=== PATIENT | female | born 1990 | race Caucasian/White ===

== ENCOUNTER 2017-02-20 14:51 | Emergency (ER) | payer OTHER ==
[2017-02-20 14:58] VITALS: BP 132/68; PULSE 78; TEMP 98; BMI 31.7
--- NOTE | 2017-02-20 15:20 | PDOC ---
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 The source states she had hepatitis in the past unknown HIV status. the source has not been tested. Pt here today for post exposure. Timing: this afternoon Severity: mild Exposed Location: Right: Finger(s) (thumb) Assessing Significant Risk PEP: Yes Percutaneous Past History - Past Medical History Allergies/Adverse Reactions: Allergies No Known Allergies Allergy (Verified 02/20/17 14:56) Home Medications: Ambulatory Orders Raltegravir [Isentress] 400 mg PO BID #46 tab 02/20/17 General: Yes: no pertinent history - Immunization History Immunizations Up to Date: Yes Tetanus Status: Less than 5 years - Social History Smoking Status: Never smoked Review of Systems - Review of Systems Able to Perform ROS?: Yes Is the patient limited Omani proficient: No Constitutional: No: Symptoms Reported HEENTM: No: Symptoms Reported Respiratory: No: Symptoms reported Cardiac (ROS): No: Symptoms Reported ABD/GI: No: Symptoms Reported : No: Symptoms Reported Musculoskeletal: No: Symptoms Reported Integumentary: Yes: Symptoms Reported *Physical Exam - Vital Signs Last Vital Signs Temp Pulse Resp BP Pulse Ox 98 F 78 18 132/68 98 02/20/17 14:55 02/20/17 14:55 02/20/17 14:55 02/20/17 14:55 02/20/17 14:55 - Physical Exam General Appearance: Yes: Nourished, Appropriately Dressed HEENT: positive: EOMI, CINDY Gastrointestinal/Abdominal: positive: Normal Bowel Sounds, Soft Musculoskeletal: positive: Normal Inspection Extremity: positive: Normal Capillary Refill, Normal Inspection, Normal Range of Motion Integumentary: positive: Normal Color, Dry, Warm, Other (right thumb lateral surface ) Neurologic: positive: Fully Oriented, Alert, Normal Mood/Affect, Normal Response , Motor Strength 5/5 Post Exposure - ED Protocol - Exposure Treatment Washing/Decontamination: Soap/Water Source Patient HIV Status:: Unknown Is PEP indicated?: Yes Prophylaxis for HIV discussed?: Yes Prophylaxis given?: Yes Prophylaxis refused?: No Treatment Given:: Truvada (Tenof+Emtricita), Isentress (Raltegravir) Drug(s) Information Sheets given:: Yes Baseline bloods drawn prophylaxis:(use *Exposure-Hosp Emp): Yes Additional Treatment:: DT - Referrals Employee Referred to Infectious Disease Specialist:: Denise Meyers *DC/Admit/Observation/Transfer Diagnosis at time of Disposition: Needlestick injury with contaminated needle Qualifiers: Encounter type: initial encounter Qualified Code(s): W46.1XXA - Contact with contaminated hypodermic needle, initial encounter - Discharge Dispostion Disposition: HOME Condition at time of disposition: Good - Prescriptions Prescriptions: Raltegravir [Isentress] 400 mg PO BID #46 tab - Referrals Referrals: Aaron Lundberg MD [Primary Care Provider] - Denise Meyers MD [Staff Physician] - - Patient Instructions Printed Discharge Instructions: How to Handle Body Fluid Exposure -- Non- Healthcare Worker (At Home, Caregi Additional Instructions: take the medication as prescribed keep finger clean and dry antibacterial soap and water and apply bacitracin and bandaid follow with your primary care or with the infectious disease doctor Dr. Meyers next week calll Wednesday to make appointment return to ER for any worsening symptoms - Post Discharge Activity Work/School Note: Back to Work
[2017-02-20] MEDS ORDERED: DIPHTH,PERTUSS(ACELL),TET 0.5 ML DISP.SYRIN IM ONE (15:44)
[2017-02-20 15:59] LABS: HIV 1 & 2 AB NEGATIVE; HIV 1 AGp24 NEGATIVE
[2017-02-20] MEDS ORDERED: HIV POST EXPOSURE PROPHYLAXIS KIT NR ONE (16:06)
[2017-02-20] MEDS ORDERED: HIV POST EXPOSURE PROPHYLAXIS KIT PO ONE (16:13)
[2017-02-23 10:13] LABS: HEP B SURFACE AB Reactive (.)
== END 2017-02-20 16:40 | disposition home or self-care (01) ==
LOC: JERFT 14:51
PROC: 3E0234Z Introduction of Serum, Toxoid and Vaccine into Muscle, Percutaneous Approach (ICD-10-PCS; principal; 2017-02-20)
DX: S61.031A Puncture wound without foreign body of right thumb without damage to nail, initial encounter (principal); W46.1XXA Contact with contaminated hypodermic needle, initial encounter; Y93.F9 Activity, other caregiving; Y92.531 Health care provider office as the place of occurrence of the external cause; Y99.0 Civilian activity done for income or pay
CPT/HCPCS: 36415; 84460; 84703; 86704; 86706; 86708; 87340; 87389; 90715; 99281-25

== ENCOUNTER 2017-05-15 09:34 | Emergency (ER) | payer SELFPAY ==
[2017-05-15 09:43] VITALS: BP 118/79; PULSE 68; TEMP 99; BMI 31.3
--- NOTE | 2017-05-15 10:08 | PDOC ---
History of Present Illness - General Chief Complaint: Sore Throat Stated Complaint: SORE THROAT Time Seen by Provider: 05/15/17 09:45 History Source: Patient Exam Limitations: No Limitations - History of Present Illness Initial Comments: 05/15/17 10:04 Patient is a 27-year-old female, history of migraines presents emergency department for sore throat, dysphasia, fever last night, no cough. Allergies: No known allergies Medications: None Family History: Non-contributory Social History: Denies smoking, alcohol use, or IVDU Review of Systems GENERAL/CONSTITUTIONAL: Fever. No weakness. No weight change. HEAD, EYES, EARS, NOSE AND THROAT: No change in vision. No ear pain or discharge. Sore throat and dysphagia CARDIOVASCULAR: No chest pain or shortness of breath. RESPIRATORY: No cough, wheezing, or hemoptysis. GASTROINTESTINAL: No nausea, vomiting, diarrhea or constipation. No rectal bleeding. GENITOURINARY: No dysuria, frequency, or change in urination. MUSCULOSKELETAL: No joint or muscle swelling or pain. No neck or back pain. SKIN AND BREASTS: No rash or easy bruising. NEUROLOGIC: No headache, vertigo, loss of consciousness, or loss of sensation. PSYCHIATRIC: No depression or anxiety. ENDOCRINE: No increased thirst. No abnormal weight change. HEMATOLOGIC/LYMPHATIC: No anemia, easy bleeding, or history of blood clots. ALLERGIC/IMMUNOLOGIC: No hives or skin allergy. No latex allergy. Physical Exam: GENERAL: The patient is awake, alert, and fully oriented, in no acute distress. HEAD: Normal with no signs of trauma. EYES: Pupils equal, round and reactive to light, extraocular movements intact, sclera anicteric, conjunctiva clear. ENT: Ears normal, nares patent, oral pharynx is erythematous with exudates bilateral tonsils . Moist mucous membranes. No uvula deviation NECK: Normal range of motion, left anterior cervical lymphadenopathy right is normal, JVD, or masses. LUNGS: Breath sounds equal, clear to auscultation bilaterally. No wheezes, and no crackles. HEART: Regular rate and rhythm, normal S1 and S2 without murmur, rub or gallop. ABDOMEN: Soft, nontender, normoactive bowel sounds. No guarding, no rebound. No masses. No bruising or abrasions MUSCULOSKELETAL: Normal range of motion, no edema. No clubbing or cyanosis. No cords, erythema, or tenderness. No CVA Tenderness with fist. NEUROLOGICAL: Cranial nerves II through XII grossly intact. Normal speech, normal gait. SKIN: Warm, Dry, normal turgor, no rashes or lesions noted. 05/15/17 15:12 Past History - Past Medical History Allergies/Adverse Reactions: Allergies Allergy/AdvReac Type Severity Reaction Status Date / Time No Known Allergies Allergy Verified 05/15/17 09:40 Home Medications: Ambulatory Orders Azithromycin [Zithromax 250mg Tablets -] 250 mg PO UTDICT #6 tab 05/15/17 Other medical history: DENIES. - Surgical History Abdominal Surgery: Yes - Immunization History Immunization Up to Date: Yes - Psycho/Social/Smoking Cessation Hx Anxiety: No Suicidal Ideation: No Smoking History: Never smoked Have you smoked in the past 12 months: No Hx Alcohol Use: No Drug/Substance Use Hx: No Substance Use Type: None *Physical Exam - Vital Signs Last Vital Signs Temp Pulse Resp BP Pulse Ox 99 F 68 17 118/79 99 05/15/17 09:40 05/15/17 09:40 05/15/17 09:40 05/15/17 09:40 05/15/17 09:40 Medical Decision Making - Medical Decision Making 05/15/17 10:06 A/P: Patient here for evaluation of sore throat, based upon patient's clinical presentation will DC patient on azithromycin, strict instructions for him warm saltwater gargles and changing toothbrush after 3 days. Motrin for pain. Rapid strep was sent. *DC/Admit/Observation/Transfer Diagnosis at time of Disposition: Pharyngitis Qualifiers: Pharyngitis/tonsillitis etiology: unspecified etiology Qualified Code(s): J02.9 - Acute pharyngitis, unspecified - Discharge Dispostion Disposition: HOME Condition at time of disposition: Good Admit: No - Prescriptions Prescriptions: Azithromycin [Zithromax 250mg Tablets -] 250 mg PO UTDICT #6 tab - Referrals Referrals: Aaron Lundberg MD [Primary Care Provider] - - Patient Instructions Printed Discharge Instructions: DI for Pharyngitis/Tonsillopharyngitis -- Adult Additional Instructions: 1. Increase fluid. 2. Pedialyte or Gatorade. 3. Please change toothbrush within 3 days of starting antibiotics. 4. Warm saltwater gargles. 5. Please follow up with PMD in 3 days if symptoms not resolving. 6. Please return to the ER unable to drink or eat, increased fever or other concerns - Post Discharge Activity Work/School Note: Back to Work
== END 2017-05-15 10:10 | disposition home or self-care (01) ==
LOC: JERFT 09:34
DX: J02.9 Acute pharyngitis, unspecified (principal)
CPT/HCPCS: 87070; 87430; 99281-25

== ENCOUNTER 2017-06-09 11:26 | Emergency (ER) | payer SELFPAY ==
[2017-06-09 11:29] VITALS: BP 125/75; PULSE 85; TEMP 98.6; BMI 31.7
[2017-06-09] MEDS ORDERED: IBUPROFEN 600 MG TABLET (FP) PO ONE ×2 (11:47→11:54)
--- NOTE | 2017-06-09 11:48 | PDOC ---
History of Present Illness - General Chief Complaint: Injury Stated Complaint: LT FOOT PAIN Time Seen by Provider: 06/09/17 11:45 History Source: Patient Exam Limitations: No Limitations - History of Present Illness Initial Comments: 06/10/17 09:21 Was placing son in crib last night and stumbled and hit left fifth toe against site of dresser. States felt a crack and has been painful, swollen and bruised since that time. Occurred: reports: yesterday Severity: reports: mild, moderate Pain Location: reports: lower extremity (left fifth toe) Method of Injury: Yes: direct blow Associated Symptoms (Fall): denies symptoms Past History - Travel Traveled outside of the country in the last 30 days: No Close contact w/someone who was outside of country & ill: No - Past Medical History Allergies/Adverse Reactions: Allergies Allergy/AdvReac Type Severity Reaction Status Date / Time No Known Allergies Allergy Verified 06/09/17 11:29 Home Medications: Ambulatory Orders NK [No Known Home Medication] 06/09/17 Other medical history: NONE - Surgical History Abdominal Surgery: Yes - Immunization History Immunization Up to Date: Yes - Psycho/Social/Smoking Cessation Hx Anxiety: No Suicidal Ideation: No Smoking History: Never smoked Have you smoked in the past 12 months: No Hx Alcohol Use: No Drug/Substance Use Hx: No Substance Use Type: None Review of Systems - Review of Systems Able to Perform ROS?: Yes Is the patient limited Albanian proficient: Yes Constitutional: Yes: Symptoms Reported, See HPI. No: Chills HEENTM: No: Symptoms Reported Respiratory: No: Symptoms reported Integumentary: Yes: Symptoms Reported, See HPI, Bruising Neurological: Yes: Symptoms reported, See HPI All Other Systems: Reviewed and Negative *Physical Exam - Vital Signs Last Vital Signs Temp Pulse Resp BP Pulse Ox 98.6 F 85 20 125/75 99 06/09/17 11:27 06/09/17 11:27 06/09/17 11:27 06/09/17 11:27 06/09/17 11:27 - Physical Exam General Appearance: Yes: Nourished, Appropriately Dressed, Apparent Distress HEENT: positive: CINDY, Normal ENT Inspection, TMs Normal, Pharynx Normal Neck: negative: Tender Respiratory/Chest: positive: Lungs Clear Musculoskeletal: negative: Normal Inspection Extremity: negative: Normal Inspection, Normal Range of Motion (swollen, ecchymotic, and tender at PIP and M TP of left fifth toe. 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 Marcos taped and cast shoe placed, given 2 Percocet tablets and will follow up with Orth O/podiatry as needed. *DC/Admit/Observation/Transfer Diagnosis at time of Disposition: Toe fracture, left Qualifiers: Encounter type: initial encounter Toe: unspecified toe Fracture type: closed Fracture alignment: nondisplaced Qualified Code(s): S92.912A - Unspecified fracture of left toe(s), initial encounter for closed fracture - Discharge Dispostion Disposition: HOME Condition at time of disposition: Stable - Referrals Referrals: Aaron Lundberg MD [Primary Care Provider] - - Patient Instructions Printed Discharge Instructions: DI for Toe Fracture Additional Instructions: Rest, ice to area on and off for 15 minutes 4-6 times a day Avoid heavy lifting or exercise until pain and swelling is resolved or until further directed Keep area highly elevated to reduce swelling Use splints/Dioni wrap as directed Followup with orthopedist in one to 2 days if not improving, if significantly improved may wait one week for followup with orthopedist May use ibuprofen 2-200 mg tablets every 6 hours as needed for pain May use 1 Percocet tablet every 8 hours as needed for severe pain, understanding will make dizzy and sleepy - Post Discharge Activity Work/School Note: Back to Work
== END 2017-06-09 12:50 | disposition home or self-care (01) ==
LOC: JERFT 11:26
PROC: 2W3VXYZ Immobilization of Left Toe using Other Device (ICD-10-PCS; principal; 2017-06-09)
DX: S92.912A Unspecified fracture of left toe(s), initial encounter for closed fracture (principal); W22.03XA Walked into furniture, initial encounter; Y93.89 Activity, other specified; Y92.092 Bedroom in other non-institutional residence as the place of occurrence of the external cause
CPT/HCPCS: 73660-TC; 99281-25

== ENCOUNTER 2017-09-29 09:26 | Emergency (ER) | payer SELFPAY ==
[2017-09-29 09:30] VITALS: BP 116/85; PULSE 105; TEMP 99.9; BMI 71.2
[2017-09-29] MEDS ORDERED: IBUPROFEN 600 MG TABLET (FP) PO ONE ×2 (11:28→11:31)
--- NOTE | 2017-09-29 11:57 | PDOC ---
History of Present Illness - General Chief Complaint: Cold Symptoms Stated Complaint: CONGESTED, COUGH Time Seen by Provider: 09/29/17 11:21 History Source: Patient Exam Limitations: No Limitations - History of Present Illness Initial Comments: 09/29/17 11:54 27-year-old female presents the emergency room with complaints of cough, generalized arthralgia, myalgia, frontal headache, and mild sore throat for the past 2 days. Patient denies recent travel, recent illness or recent sick contacts. Patient states did not receive the influenza vaccine. Patient denies medical history denies smoking. Timing/Duration: reports: other (2 days) Severity: reports: mild, moderate Modifying Factors: improves with: coughing Associated Symptoms: reports: cough, headache, sore throat Past History - Travel Traveled outside of the country in the last 30 days: No - Past Medical History Allergies/Adverse Reactions: Allergies Allergy/AdvReac Type Severity Reaction Status Date / Time No Known Allergies Allergy Verified 09/29/17 09:30 Home Medications: Ambulatory Orders NK [No Known Home Medication] 06/09/17 COPD: No Other medical history: NONE - Surgical History Abdominal Surgery: No - Immunization History Immunization Up to Date: Yes - Suicide/Smoking/Psychosocial Hx Smoking History: Never smoked Have you smoked in the past 12 months: No Hx Alcohol Use: No Drug/Substance Use Hx: No Substance Use Type: None Patient Lives Alone: No Lives with/in: parents Respiratory Specific PMHX - Complaint Specific PMHX Bronchitis: No Review of Systems - Review of Systems Able to Perform ROS?: Yes Constitutional: Yes: Malaise HEENTM: Yes: Throat Pain Respiratory: Yes: Cough Cardiac (ROS): No: Symptoms Reported ABD/GI: No: Symptoms Reported : No: Symptoms Reported Musculoskeletal: Yes: Joint Pain, Muscle Pain Integumentary: No: Symptoms Reported Neurological: Yes: Headache Hematologic/Lymphatic: No: Symptoms Reported *Physical Exam - Vital Signs Last Vital Signs Temp Pulse Resp BP Pulse Ox 99.9 F H 105 H 20 116/85 96 09/29/17 09:27 09/29/17 09:27 09/29/17 09:27 09/29/17 09:27 09/29/17 09:27 - Physical Exam General Appearance: Yes: Nourished, Appropriately Dressed. No: Apparent Distress HEENT: positive: EOMI, CINDY, Pharyngeal Erythema (mild no exudate). negative: Pale Conjunctivae Neck: positive: Normal Thyroid, Supple Respiratory/Chest: positive: Lungs Clear, Normal Breath Sounds. negative: Respiratory Distress, Accessory Muscle Use Cardiovascular: positive: Regular Rhythm, Tachycardia (102). negative: Murmur Gastrointestinal/Abdominal: positive: Soft. negative: Tenderness Integumentary: positive: Normal Color, Warm, Moist Neurologic: positive: Motor Strength 5/5 (ambulatory) ED Treatment Course - Medications Given in the ED: ED Medications Discontinued Medications Generic Name Dose Route Start Last Admin Trade Name Kingsleyq PRN Reason Stop Dose Admin Ibuprofen 600 mg 09/29/17 11:28 09/29/17 11:32 Motrin - PO 09/29/17 11:29 600 mg ONCE ONE Administration Medical Decision Making - Medical Decision Making 09/29/17 11:57 Patient with URI complaints was found to be tachycardic with a low-grade temp. Patient clinically presents as influenza. I was informed that we do not have influenza swabs for testing. Patient also swab for rapid strep. Patient also ordered for Motrin secondary to complaints low-grade temp and tachycardia. 09/29/17 12:52 Rapid strep negative. Patient states any better after receiving Motrin. Will discharge patient home with Tamiflu since she is still in the window and clinically presents as such. *DC/Admit/Observation/Transfer Diagnosis at time of Disposition: Influenza - Discharge Dispostion Disposition: HOME Condition at time of disposition: Improved - Referrals Referrals: Aaron Lundberg MD [Primary Care Provider] - - Patient Instructions Printed Discharge Instructions: DI for Influenza -- Adult Additional Instructions: Please take Tylenol for was recommended until completed. please take Motrin 600 mg every 6-8 hours for adequate discomfort and fever control. please drink plenty of fluids and rest. - Post Discharge Activity
== END 2017-09-29 12:58 | disposition home or self-care (01) ==
LOC: JERFT 09:26
DX: J11.1 Influenza due to unidentified influenza virus with other respiratory manifestations (principal)
CPT/HCPCS: 87070; 87430; 99281-25

== ENCOUNTER 2017-10-02 11:04 | Emergency (ER) | payer SELFPAY ==
[2017-10-02 11:11] VITALS: BP 123/61; PULSE 72; TEMP 98.5; BMI 32.3
--- NOTE | 2017-10-02 12:08 | PDOC ---
History of Present Illness - General Chief Complaint: Allergic Reaction Stated Complaint: ALLERGIC REACTION Time Seen by Provider: 10/02/17 11:51 History Source: Patient Exam Limitations: No Limitations - History of Present Illness Initial Comments: 10/02/17 12:07 Patient is a 27-year-old female, was seen on 09/29 in the emergency department diagnosed with influenza based upon clinical presentation started on Tamiflu patient states the last 2 days has been having swelling intermittently to the right side of the face with a right frontal facial pain, think she may be having allergic reaction to the Tamiflu. Patient denies any rash, no pruritus, no difficulty breathing, no difficulty swallowing. Patient with no facial swelling upon arrival. Past Medical History: [Denies]. Allergies: No known allergies Medications: [Tamiflu] Family History: Non-contributory Social History: Denies smoking, alcohol use, or IVDU Review of Systems GENERAL/CONSTITUTIONAL: [No fever or chills. No weakness. No weight change.] HEAD, EYES, EARS, NOSE AND THROAT: [No change in vision. No ear pain or discharge. No sore throat. Right frontal sinus pressure and swelling.] CARDIOVASCULAR: [No chest pain or shortness of breath.] RESPIRATORY: [No cough, wheezing, or hemoptysis.] GASTROINTESTINAL: [No nausea, vomiting, diarrhea or constipation. No rectal bleeding.] GENITOURINARY: [No dysuria, frequency, or change in urination.] MUSCULOSKELETAL: [No joint or muscle swelling or pain. No neck or back pain.] SKIN AND BREASTS: [No rash or easy bruising.] NEUROLOGIC: [No headache, vertigo, loss of consciousness, or loss of sensation.] PSYCHIATRIC: [No depression or anxiety.] ENDOCRINE: [No increased thirst. No abnormal weight change.] HEMATOLOGIC/LYMPHATIC: [No anemia, easy bleeding, or history of blood clots.] ALLERGIC/IMMUNOLOGIC: [No hives or skin allergy. No latex allergy.] Physical Exam: GENERAL: [The patient is awake, alert, and fully oriented, in no acute distress. ] HEAD: [Normal with no signs of trauma.] EYES: [Pupils equal, round and reactive to light, extraocular movements intact, sclera anicteric, conjunctiva clear.] ENT: [Ears normal, nares patent, oropharynx clear without exudates. Moist mucous membranes. No uvula deviation. Right frontal sinus pain on palpation, sinus congested.] NECK: [Normal range of motion, supple without lymphadenopathy, JVD, or masses.] LUNGS: [Breath sounds equal, clear to auscultation bilaterally. No wheezes, and no crackles.] HEART: [Regular rate and rhythm, normal S1 and S2 without murmur, rub or gallop. ] ABDOMEN: [Soft, nontender, normoactive bowel sounds. No guarding, no rebound. No masses. No bruising or abrasions] MUSCULOSKELETAL: [Normal range of motion, no edema. No clubbing or cyanosis. No cords, erythema, or tenderness. No CVA Tenderness with fist.] NEUROLOGICAL: [Cranial nerves II through XII grossly intact. Normal speech, normal gait.] SKIN: [Warm, Dry, normal turgor, no rashes or lesions noted.] Past History - Past Medical History Allergies/Adverse Reactions: Allergies Allergy/AdvReac Type Severity Reaction Status Date / Time No Known Allergies Allergy Verified 10/02/17 11:05 Home Medications: Ambulatory Orders Amox-Tr/K Cl [Augmentin - 875Mg Tablet] 1 tab PO BID #14 tablet 10/02/17 Promethazine HCl [Phenergan Plain 6.25 MG/5 ML -] 5 ml PO TID #60 ml 10/02/17 COPD: No - Surgical History Abdominal Surgery: No - Immunization History Immunization Up to Date: Yes - Suicide/Smoking/Psychosocial Hx Smoking History: Never smoked Have you smoked in the past 12 months: No Information on smoking cessation initiated: No Hx Alcohol Use: No Drug/Substance Use Hx: No Substance Use Type: None *Physical Exam - Vital Signs Last Vital Signs Temp Pulse Resp BP Pulse Ox 98.5 F 72 18 123/61 100 10/02/17 11:07 10/02/17 11:07 10/02/17 11:07 10/02/17 11:07 10/02/17 11:07 Medical Decision Making - Medical Decision Making 10/02/17 13:29 A/P: Patient here for evaluation of intermittent facial swelling that she experienced at home none upon arrival has resolved concerns she may have been having allergic reaction to the Tamiflu. Patient with no rash, no edema. On physical examination noted with right frontal sinus pressure and pain, consistent with a sinusitis. Will DC patient on Augmentin discontinue Tamiflu, follow-up with PMD on Wednesday I discussed the physical exam findings, ancillary test results and final diagnoses with the patient. I answered all of the patient's questions. The patient was satisfied with the care received and felt comfortable with the discharge plan and treatment plan. The patient will call to arrange follow-up and will return to the Emergency Department with any new, persistent or worsening symptoms. *DC/Admit/Observation/Transfer Diagnosis at time of Disposition: URI (upper respiratory infection) Qualifiers: URI type: unspecified URI Qualified Code(s): J06.9 - Acute upper respiratory infection, unspecified Sinusitis Qualifiers: Sinusitis location: frontal Chronicity: acute Recurrence: non-recurrent Qualified Code(s): J01.10 - Acute frontal sinusitis, unspecified - Discharge Dispostion Disposition: HOME Condition at time of disposition: Good Admit: No - Prescriptions Prescriptions: Amox-Tr/K Cl [Augmentin - 875Mg Tablet] 1 tab PO BID #14 tablet Promethazine HCl [Phenergan Plain 6.25 MG/5 ML -] 5 ml PO TID #60 ml - Referrals Referrals: Aaron Lundberg MD [Primary Care Provider] - - Patient Instructions Printed Discharge Instructions: Sinusitis Additional Instructions: Increase fluids to prevent dehydration Antibiotics as ordered until completed, cough medicine as prescribed as needed Motrin for fever greater than 101.0 Please followup with primary care in 3 days if symptoms persist Return to emergency department any increased cough, fever, inability to drink or other concerns - Post Discharge Activity Forms/Work/School Notes: Back to Work
== END 2017-10-02 12:20 | disposition home or self-care (01) ==
LOC: JERFT 11:04
DX: J01.10 Acute frontal sinusitis, unspecified (principal); J06.9 Acute upper respiratory infection, unspecified
CPT/HCPCS: 99281-25